=== PATIENT | female | born 1980 ===

== ENCOUNTER 2017-06-05 10:01 | Emergency (ER) | payer OTHER ==
[2017-06-05] MEDS ORDERED: NS 1,000 ML IV ONE ×2 (10:38→13:49)
[2017-06-05] MEDS ORDERED: ONDANSETRON 4 MG/2 ML VIAL IVP ONE (10:38)
[2017-06-05 10:45] LABS: % IMMATURE GRANULYOCYTES 0.4 % (0.0-1.1); ABSOLUTE IMMATURE GRANULOCYTES 0.05 10^3/uL (0.00-0.10); ADD DIFF? NO; ADD MORPH? NO; ADD SCAN? NO; ATYPICAL LYMPHOCYTE FLAG 0 (0-99); FRAGMENT RBC FLAG 0 (0-99); HEMATOCRIT 41.3 % (38.0-47.0); HEMOGLOBIN 14.1 g/dL (12.6-16.3); LEFT SHIFT FLG 0 (0-99); LIPEMIA HEMOLYSIS FLAG 90 (0-99); MEAN CELL HEMOGLOBIN CONCENTR. 34.1 g/dL (32.4-36.7); MEAN CELL VOLUME 87.9 fL (81.5-99.8); MEAN PLATELET VOLUME 8.9 fL (8.7-11.7); PLATELET CLUMPS FLAG 0 (0-99); PLATELET COUNT 347 10^3/uL (150-400); RED CELL DISTRIBUTION WIDTH 12.9 % (11.5-15.2)
[2017-06-05 10:58] LABS: ALANINE AMINOTRANSFERASE 43 IU/L (9-52); ALBUMIN 4.3 g/dL (3.5-5.0); ALKALINE PHOSPHATASE 92 IU/L (38-126); ANION GAP 12 mEq/L (8-16); ASPARTATE AMINOTRANSFERASE 21 IU/L (14-46); BILIRUBIN,TOTAL 1.1 mg/dL (0.1-1.4); BILIRUBIN-CONJUGATED 0.2 mg/dL (0.0-0.5); BILIRUBIN-UNCONJUGATED 0.9 mg/dL (0.0-1.1); CALCIUM 9.8 mg/dL (8.5-10.4); CARBON DIOXIDE 21 mEq/l (22-31); CHLORIDE 106 mEq/L (97-110); CREATININE 0.9 mg/dL (0.6-1.0); GLOMERULAR FILTRATION RATE > 60; GLUCOSE 113 mg/dL (70-100); POTASSIUM 4.4 mEq/L (3.5-5.2); SODIUM 139 mEq/L (134-144); TOTAL PROTEIN 7.6 g/dL (6.3-8.2)
--- NOTE | 2017-06-05 11:28 | EDPHY ---
H & P Smoking Status: Never smoked Time Seen by Provider: 06/05/17 10:33 HPI/ROS: HPI: MS. 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 She is currently on day 3 of 4 of her menses. She did not have a bowel movement today. No history of abdominal surgery. She complains of sudden onset of left lower quadrant pain that sharp nonradiating and constant upon awakening this morning. Modifying Factors: Has not tried any [id number] medication Comment: ROS: Eyes: No blurred vision Respiratory: No shortness of breath, no cough Cardiovascular: No chest pain Gastrointestinal: No nausea, no vomiting no diarrhea Genitourinary: No dysuria Extremities: No myalgias Neurologic: No weakness, no numbness Skin: No rashes Hematologic: No bruising, no bleeding MEDICAL/SURGICAL HISTORY: Generally healthy. Denies any abdominal surgeries. (Dang Viveros) Social History: . (Dang Viveros) Physical Exam: CONSTITUTIONAL: obese moderate distress adult female, awake and alert , at bedside HEENT: Atraumatic and normocephalic, PERRL, EOMI. Tympanic membranes clear. Oropharynx clear, no exudate and moist pink mucosa. Airway patent. No lymphadenopathy. No meningismus. Cardiovascular: Normal S1/S2, regular rate, regular rhythm, without murmur rub or gallop. PULMONARY/CHEST: Symmetrical and nontender. Clear to auscultation bilaterally. Good air movement. No accessory muscle usage. tachypnea. ABDOMEN: Soft, nondistended, left lower quadrant moderate tenderness, no rebound, + guarding, no peritoneal signs, no masses or organomegaly. No CVAT. Bowel sounds hypoactive x4. EXTREMITIES: 2/2 pulses, no deformities, no clubbing, no cyanosis or edema. NEUROLOGICAL: no focal neuro deficits. GCS 15. SKIN: Warm and dry, no erythema. no rash. Good capillary refill. (Dang Viveros) Constitutional: Initial Vital Signs Temperature (C) 36.6 C 06/05/17 10:07 Heart Rate 70 06/05/17 10:07 Respiratory Rate 24 H 06/05/17 10:07 Blood Pressure 127/71 H 06/05/17 10:07 O2 Sat (%) 100 06/05/17 10:07 O2 Delivery Mode Room Air O2 (L/minute) 2 Allergies/Adverse Reactions: No Known Allergies Allergy (Verified 06/05/17 10:06) Home Medications: Medication Instructions Recorded Synthroid 07/27/12 Hydrocodone/APAP 5/325 [[place] 1 - 2 tab PO Q6H PRN #20 tab 06/05/17 5/325 (*)] Ketorolac Tromethamine [Toradol] 10 mg PO Q6H #16 tab 06/05/17 Ondansetron Odt [Zofran Odt 4 mg 4 mg PO Q4 PRN #20 tab 06/05/17 (*)] Tamsulosin HCl [Flomax 0.4 MG (*)] 0.4 mg PO DAILY #10 cap 06/05/17 Medical Decision Making ED Course/Re-evaluation: Urine , urinalysis, labs, IV fluids, CT abdomen and pelvis scan Urine negative UA shows blood consistent with menses no clear signs of infection Noted mild leukocytosis at WBCs of 11.4 and lactic acid at 2.1 Given IV morphine, IV toradol, IV Valium with mild to moderate pain relief Tolerating oral intake Called by radiologist CT abdominal pelvis scan shows moderate left hydronephrosis with perinephric stranding down to a left calculus at the UVJ junction measuring 7 x 4 x 5 mm. No signs of acute kidney injury, electrolyte imbalance, sepsis, appendicitis, diverticulitis, colitis, pelvic inflammatory disorder, ovarian torsion. 2:25 p.[address]. spoke with urologist Dr. Freddy Day who requested that we fax patient's cover sheet over to his office at [phone]. Agrees with the plan to push fluids, pain control and patient is to call his office or follow-up appointment in the next several days. (Dang Viveros) Differential Diagnosis: Abdominal pain in a female including but not limited to ovarian cyst, pelvic inflammatory disease, ovarian torsion, urinary tract infection, and appendicitis. (Dang Viveros) Other Provider: The patient wasevaluatedand managed by themmalevel provider. Idiscussed the patient's presentation and course with thephysicianassistantor nurse practitionerand agree with theevaluation. My co-signature indicates that I have reviewed this chart and I agree with the findings and plan of care as documented. I am the secondary supervisingphysician. (Nevaeh Servin) - Data Points Laboratory Results: Laboratory Results 06/05/17 10:20 06/05/17 10:20 Medications Given: Discontinued Medications Diazepam (Valium Injection) 5 mg IVP EDNOW ONE Stop: 06/05/17 13:50 Last Admin: 06/05/17 14:24 Dose: 5 mg Sodium Chloride (Ns) 1,000 mls @ 0 mls/hr IV EDNOW ONE; Wide Open PRN Reason: Protocol Stop: 06/05/17 10:39 Last Admin: 06/05/17 10:45 Dose: 1,000 mls Sodium Chloride (Ns) 1,000 mls @ 0 mls/hr IV EDNOW ONE; Wide Open PRN Reason: Protocol Stop: 06/05/17 13:50 Last Admin: 06/05/17 14:29 Dose: 1,000 mls Ketorolac Tromethamine (Toradol) 60 mg IM EDNOW ONE Stop: 06/05/17 13:49 Last Admin: 06/05/17 14:25 Dose: 60 mg Morphine Sulfate (Morphine) 6 mg IVP EDNOW ONE Stop: 06/05/17 10:39 Last Admin: 06/05/17 10:46 Dose: 6 mg Morphine Sulfate (Morphine) 2 mg IVP EDNOW ONE Stop: 06/05/17 12:28 Last Admin: 06/05/17 12:44 Dose: 2 mg Ondansetron HCl (Zofran) 4 mg IVP EDNOW ONE Stop: 06/05/17 10:39 Last Admin: 06/05/17 10:42 Dose: 4 mg Tamsulosin HCl (Flomax) 0.4 mg PO EDNOW ONE Stop: 06/05/17 13:49 Last Admin: 06/05/17 14:28 Dose: 0.4 mg Departure - Departure Disposition: Home, Routine, Self-Care Clinical Impression: Renal colic on left side, Kidney stone on left side Condition: Good Instructions: Kidney Stones (ED), Renal Colic (ED) Referrals: Julianna Felipe [Primary Care Provider] - As per Instructions Prescriptions: Hydrocodone/APAP 5/325 [[place] 5/325 (*)] 1 - 2 tab PO Q6H PRN #20 tab PRN Reason: Pain, Breakthrough Ketorolac Tromethamine [Toradol] 10 mg PO Q6H #16 tab Ondansetron Odt [Zofran Odt 4 mg (*)] 4 mg PO Q4 PRN #20 tab PRN Reason: Nausea/Vomiting, Use 1st Tamsulosin HCl [Flomax 0.4 MG (*)] 0.4 mg PO DAILY #10 cap
[2017-06-05 11:30] LABS: COLOR YELLOW; LEUKOCYTE ESTERASE,URINE NEGATIVE (NEGATIVE); NITRITE,URINE NEGATIVE (NEGATIVE)
[2017-06-05 11:38] LABS: BACTERIA 1+ /hpf (NONE SEEN); MUCUS TRACE /lpf (NONE-1+); RBC,URINE 50-182 /hpf (0-3)
[2017-06-05] MEDS ORDERED: IOPAMIDOL (ISOVUE-300) 100 ML BTL ONE (11:57)
[2017-06-05 12:15] VITALS: PULSE 80
[2017-06-05] MEDS ORDERED: TAMSULOSIN HCL 0.4 MG CAP PO ONE (13:48)
[2017-06-05] MEDS ORDERED: KETOROLAC 30 MG/1 ML SDV IM ONE (13:48)
[2017-06-05] MEDS ORDERED: DIAZEPAM 10 MG/2 ML SYR IVP ONE (13:49)
[2017-06-05 15:33] VITALS: BP 120/60; RESP 16; TEMP 97.5; O2SAT 96
== END 2017-06-05 15:47 | disposition home or self-care (01) ==
DX: N20.0 Calculus of kidney (principal); E86.9 Volume depletion, unspecified
CPT/HCPCS: 96374; J1885; J2405; Q9967